=== PATIENT | male | born 1945 | race Caucasian/White ===

== ENCOUNTER → 2023-07-05 12:07 | Outpatient (CLI) | payer MEDICARE, OTHER, SELFPAY ==
--- NOTE | 2023-07-05 12:10 | DI.CT.S_ITS ---
PROCEDURE: CT CHEST HIGH RESOLUTION INDICATIONS: Shortness of breath TECHNIQUE: Noncontrast 1.0 and 5.0 mm thick contiguous axial sections from the pulmonary apex to the posterior costophrenic angles, with 7 mm thick coronal and sagittal MIP reformats. 1 mm thick dynamic expiratory images acquired through the upper, mid, and lower lungs. 1.0 mm thick axial sections acquired from the rere to the posterior costophrenic angles in the prone end-inspiration position. For radiation dose reduction, the following was used: automated exposure control, adjustment of mA and/or kV according to patient size. COMPARISON: None. FINDINGS: Image quality: Diagnostic. Lower Neck: No enlarged lymph nodes. Thyroid: No thyroid nodules which require sonographic follow up, per consensus guidelines. Axillae: No enlarged lymph nodes. Chest Wall: Left chest wall generator with cardiac leads. Bones: Unremarkable. Lungs and Pleura: No pneumothorax or pleural effusions. Very mild peripheral reticulation of the right lung base, with mild associated bronchiectasis. No significant air trapping. No ground-glass. Heart: Heart size is normal. No pericardial effusion. Thoracic Vessels: The aorta and pulmonary arteries demonstrate normal size. Mediastinum and Charlene: No enlarged lymph nodes. Esophagus: No wall thickening. Moderate hiatal hernia. Upper Abdomen: Visualized upper abdomen solid organs and bowel loops appear normal. IMPRESSION: Very mild peripheral reticulation of the right lung base, with mild associated bronchiectasis. Differential includes senescent fibrosis or very early interstitial lung disease versus scarring. Moderate hiatal hernia. Dictated by: Gamaliel Cooper M.D. on 07/05/2023 at 13:28 Approved by: Gamaliel Cooper M.D. on 07/05/2023 at 13:31
== END ==
LOC: CT 12:10
PROVIDERS: PCP Family Medicine; Referring Provider Internal Medicine; Visit Provider Internal Medicine
DX: J47.9 Bronchiectasis, uncomplicated (principal); K44.9 Diaphragmatic hernia without obstruction or gangrene; R06.00 Dyspnea, unspecified; R06.02 Shortness of breath
CPT/HCPCS: 71250

== ENCOUNTER → 2023-07-05 13:36 | Outpatient (CLI) | payer MEDICARE, OTHER, SELFPAY | PROVIDERS: PCP Family Medicine; Referring Provider Internal Medicine; Visit Provider Internal Medicine | DX: R06.02 Shortness of breath (principal); J98.8 Other specified respiratory disorders; Z87.891 Personal history of nicotine dependence; J47.9 Bronchiectasis, uncomplicated; K44.9 Diaphragmatic hernia without obstruction or gangrene; R06.00 Dyspnea, unspecified | CPT/HCPCS: 71250; 94060; 94726; 94729 ==

== ENCOUNTER → 2023-07-16 12:48 | Outpatient (CLI) | payer MEDICARE, OTHER, SELFPAY ==
[2023-07-16 13:31] LABS: Add Manual Diff / Slide Review NO; Basophils Absolute Auto 0 /uL (0-100); Basophils Percent Auto 0.5 % (0-2); Blood Urea Nitrogen 26 mg/dL (9-20); Calcium 10.3 mg/dL (8.4-10.2); Carbon Dioxide 28 mmol/L (22-32); Chloride 101 mmol/L (98-107); Eosinophils Absolute Auto 1400 /uL (0-450); Estimated Glomerular Filt Rate 53 mL/min (>60); Glucose 153 mg/dL (80-110); HEMOLYSIS < 15 (0-50); Hematocrit 41.4 % (41-53); Hemoglobin 14.1 g/dL (13.5-17.5); Lymphocytes Absolute Auto 2100 /uL (1100-4500); Lymphocytes Percent Auto 21.2 % (25-40); Mean Corpuscular HGB Conc 34.1 % (30-36); Mean Corpuscular Hemoglobin 31.7 PG (26-34); Mean Corpuscular Volume 93.2 fL (80-100); Monocytes Absolute Auto 700 /uL (0-900); Monocytes Percent Auto 6.6 % (3-14); Neutrophils Absolute Auto 5800 /uL (1500-7000); Neutrophils Percent Auto 57.7 % (50-75); Platelet Count 196 X10^3/uL (150-400); Potassium 3.8 mmol/L (3.4-5.1); Red Blood Cell Count 4.44 X10^6/uL (4.5-5.9); Red Cell Distribution Width 13.5 % (11.6-14.8); Sodium 138 mmol/L (137-145); White Blood Cell Count 10.1 X10^3/uL (4.5-11.0)
[2023-07-16 13:37] LABS: NT-proBNP (BNP-Adult 18+) 106 pg/mL (<450)
== END ==
PROVIDERS: PCP Family Medicine; Referring Provider Internal Medicine Cardiovascular Disease; Visit Provider Internal Medicine Cardiovascular Disease
DX: I50.32 Chronic diastolic (congestive) heart failure (principal)
CPT/HCPCS: 36415; 80048; 83880; 85025

== ENCOUNTER → 2023-10-25 13:03 | Outpatient (CLI) | payer MEDICARE, OTHER, SELFPAY ==
--- NOTE | 2023-10-25 13:04 | DI.ECHO.S_ITS ---
[facility] +---------+ [facility] : : [id number] : : [place] : : [id number] : : Phone: [phone] Echocardiogram Report + + :Name: PIPPA HENDRICKS Study Date: 10/25/2023 Height: 74 in : :[facility] ReadingLocation: Weight: 312 lb : : Gender: Male BSA: 2.6 m2 : :: 1945 Age: 78 yrs BP: 136/92 mmHg: :Reason For Study: DYSPNEA : :Ordering Physician: VIPUL, : :AMARJIT Performed By: Teo Soares : :Referring: AMARJIT VILLEDA : + + Interpretation Summary Technically difficult study. 1) Normal left ventricular size and systolic function (EF 55-60%). 2) Normal right ventricular size and function. 3) No significant valvular abnormalities. 4) No prior Echo available for comparison. Procedure: A two-dimensional transthoracic echocardiogram with color flow and Doppler was performed. A contrast injection of Definity was performed to improve assessment of LV function. The study quality was technically difficult. There is no prior echocardiogram noted for this patient. Left Ventricle: The left ventricle is normal in size. There is mild concentric left ventricular hypertrophy. The ejection fraction is estimated to be 55-60%. There are no obvious focal wall motion abnormalities noted but poor endocardial definition reduces the sensitivity for the detection of such. Right Ventricle: The right ventricle is not well visualized. There is a pacemaker lead in the right ventricle. The right ventricle grossly appears normal in size with probable normal systolic function. Atria: The left atrial size is normal. Right atrium not well visualized. The interatrial septum grossly appears intact with no obvious evidence for an atrial septal defect. Mitral Valve: The mitral valve is normal in structure and function. There is no mitral valve stenosis. There is mild mitral regurgitation. Aortic Valve: The aortic valve is grossly normal. There is no aortic valve stenosis. No aortic regurgitation is present. Tricuspid Valve: The tricuspid valve is not well visualized. The tricuspid valve is not well visualized, but is grossly normal. There is no tricuspid stenosis. No tricuspid regurgitation. Pulmonic Valve: The pulmonic valve is not well visualized. There is no pulmonic valvular stenosis. There is no pulmonic valvular regurgitation. Great Vessels: The aortic root is mildly dilated. The dimensions of the ascending aorta are normal. The inferior vena cava was not visualized. Pericardium/ Pleura There is no pericardial effusion. There is no pleural effusion. MMode/2D Measurements & Calculations LVIDd: 5.5 cm LVOT diam: 2.4 cm LVIDs: 4.5 cm Ao root diam: 4.0 cm FS: 17.5 % asc Aorta Diam: 3.6 cm IVSd: 1.2 cm Ao Arch Diam (Prox Trans): 3.3 cm LVPWd: 1.4 cm LV boyd. diameter/BSA (cm/m^2): 2.1 LV sys. diameter/BSA (cm/m^2): 1.7 LA A2 area: 19.8 cm2 LA A4 area: 19.7 cm2 LA length (vol): 6.0 cm LA vol: 54.9 ml LA vol index: 20.9 ml/m2 Doppler Measurements & Calculations Ao V2 max: 148.1 cm/sec LVOT Max Vipul: 91.7 cm/sec Ao V2 mean: 104.8 cm/sec LV V1 max P.4 mmHg Ao max P.8 mmHg LV V1 VTI: 18.8 cm Ao mean P.0 mmHg COREEN(I,D): 3.1 cm2 Ao V2 VTI: 27.1 cm COREEN(V,D): 2.8 cm2 sev ratio: 0.69 COREEN indexed to BSA (cm^2/m^2): 1.2 MV E max vipul: 64.5 cm/sec PA V2 max: 97.5 cm/sec MV A max vipul: 85.8 cm/sec PA V2 mean: 65.7 cm/sec MV E/A: 0.75 PA mean P.0 mmHg Med Peak E' Vipul: 4.9 cm/sec PA pr(Accel): 34.5 mmHg E/E' med: 13.1 Lat Peak E' Vipul: 6.7 cm/sec E/E' lat: 9.6 E/e' average: 11.4 MV dec time: 0.30 sec SV(LVOT): 84.7 ml Reading Physician:05:26 PM
== END ==
PROVIDERS: PCP Family Medicine; Referring Provider Internal Medicine Cardiovascular Disease; Visit Provider Internal Medicine Cardiovascular Disease
DX: I34.0 Nonrheumatic mitral (valve) insufficiency (principal); I77.810 Thoracic aortic ectasia; I50.32 Chronic diastolic (congestive) heart failure; R06.09 Other forms of dyspnea
CPT/HCPCS: 93306; C8929; Q9957

== ENCOUNTER → 2023-11-04 14:11 | Outpatient (CLI) | payer MEDICARE, OTHER, SELFPAY ==
[2023-11-04 15:16] LABS: Add Manual Diff / Slide Review NO; Basophils Absolute Auto 100 /uL (0-100); Basophils Percent Auto 0.9 % (0-2); Eosinophils Absolute Auto 300 /uL (0-450); Eosinophils Percent Auto 3.6 % (2-4); Hematocrit 42.1 % (41-53); Hemoglobin 14.6 g/dL (13.5-17.5); Lymphocytes Absolute Auto 1900 /uL (1100-4500); Lymphocytes Percent Auto 21.6 % (25-40); Mean Corpuscular HGB Conc 34.6 % (30-36); Mean Corpuscular Hemoglobin 32.6 PG (26-34); Mean Corpuscular Volume 94.3 fL (80-100); Monocytes Absolute Auto 700 /uL (0-900); Monocytes Percent Auto 8.2 % (3-14); Neutrophils Absolute Auto 5700 /uL (1500-7000); Neutrophils Percent Auto 65.7 % (50-75); Platelet Count 255 X10^3/uL (150-400); Red Blood Cell Count 4.46 X10^6/uL (4.5-5.9); Red Cell Distribution Width 13.6 % (11.6-14.8); White Blood Cell Count 8.7 X10^3/uL (4.5-11.0)
[2023-11-04 15:22] LABS: BUN Creatinine Ratio 15.1 (6-22); Blood Urea Nitrogen 22 mg/dL (9-20); Calcium 9.5 mg/dL (8.4-10.2); Carbon Dioxide 25 mmol/L (22-32); Chloride 103 mmol/L (98-107); Estimated Glomerular Filt Rate 49 mL/min (>60); Glucose 101 mg/dL (80-110); HEMOLYSIS < 15 (0-50); Potassium 4.2 mmol/L (3.4-5.1); Sodium 139 mmol/L (137-145)
[2023-11-04 15:33] LABS: NT-proBNP (BNP-Adult 18+) 95 pg/mL (<450)
== END ==
PROVIDERS: PCP Family Medicine; Referring Provider Internal Medicine Cardiovascular Disease; Visit Provider Internal Medicine Cardiovascular Disease
DX: I50.32 Chronic diastolic (congestive) heart failure (principal); I11.0 Hypertensive heart disease with heart failure
CPT/HCPCS: 36415; 80048; 83880; 85025

== ENCOUNTER → 2024-01-24 15:33 | Outpatient (CLI) | payer MEDICARE, OTHER, SELFPAY ==
[2024-01-24 18:03] LABS: Hemoglobin A1C% w Est Avg Glu 6.8 % (4.0-6.0)
== END ==
PROVIDERS: PCP Family Medicine; Referring Provider Student in an Organized Health Care Education/Training Program; Visit Provider Student in an Organized Health Care Education/Training Program
DX: E11.69 Type 2 diabetes mellitus with other specified complication (principal)
CPT/HCPCS: 36415; 83036

== ENCOUNTER → 2024-05-19 14:25 | Outpatient (CLI) | payer MEDICARE, OTHER, SELFPAY ==
[2024-05-19 15:30] LABS: Hematocrit 44.8 % (41-53); Hemoglobin 14.6 g/dL (13.5-17.5); Mean Corpuscular HGB Conc 32.7 % (30-36); Mean Corpuscular Hemoglobin 30.5 PG (26-34); Mean Corpuscular Volume 93.2 fL (80-100); Platelet Count 220 X10^3/uL (150-400); Red Blood Cell Count 4.81 X10^6/uL (4.5-5.9); White Blood Cell Count 9.1 X10^3/uL (4.5-11.0)
[2024-05-19 15:52] LABS: BUN Creatinine Ratio 15.1 (6-22); Blood Urea Nitrogen 23 mg/dL (9-20); Calcium 9.6 mg/dL (8.4-10.2); Carbon Dioxide 25 mmol/L (22-32); Chloride 104 mmol/L (98-107); Cholesterol 145 mg/dL (140-199); Estimated Glomerular Filt Rate 46 mL/min (>60); Glucose 154 mg/dL (80-110); HDL Cholesterol 44 mg/dL (40-60); HEMOLYSIS < 15 (0-50); LDL Cholesterol Calculated 65 mg/dL (<100); Potassium 4.4 mmol/L (3.4-5.1); Sodium 139 mmol/L (137-145); Triglycerides 178 mg/dL (35-150)
[2024-05-19 16:01] LABS: NT-proBNP (BNP-Adult 18+) 696 pg/mL (<450)
== END ==
PROVIDERS: PCP Family Medicine; Referring Provider Internal Medicine Cardiovascular Disease; Visit Provider Internal Medicine Cardiovascular Disease
DX: R06.09 Other forms of dyspnea (principal); I10 Essential (primary) hypertension; E78.5 Hyperlipidemia, unspecified
CPT/HCPCS: 36415; 80048; 80061; 83880; 85027

== ENCOUNTER → 2024-06-19 14:10 | Outpatient (CLI) | payer MEDICARE, OTHER, SELFPAY ==
[2024-06-19 15:12] LABS: Creatinine Urine Random 64.15 mg/dL
[2024-06-19 15:13] LABS: Microalbumin Urine Random 2.3 mg/dL (0-1.6)
[2024-06-19 15:40] LABS: Albumin 4.4 g/dL (3.5-5.0); BUN Creatinine Ratio 16.1 (6-22); Blood Urea Nitrogen 22 mg/dL (9-20); Calcium 9.7 mg/dL (8.4-10.2); Carbon Dioxide 26 mmol/L (22-32); Chloride 103 mmol/L (98-107); Cholesterol 166 mg/dL (140-199); Estimated Glomerular Filt Rate 52 mL/min (>60); Glucose 127 mg/dL (80-110); HDL Cholesterol 46 mg/dL (40-60); HEMOLYSIS < 15 (0-50); LDL Cholesterol Calculated 89 mg/dL (<100); Phosphorous 2.6 mg/dL (2.3-3.7); Potassium 4.2 mmol/L (3.4-5.1); Sodium 139 mmol/L (137-145); Triglycerides 153 mg/dL (35-150)
== END ==
PROVIDERS: PCP Family Medicine; Referring Provider Student in an Organized Health Care Education/Training Program; Visit Provider Student in an Organized Health Care Education/Training Program
DX: E11.69 Type 2 diabetes mellitus with other specified complication (principal)
CPT/HCPCS: 36415; 80061; 80069; 82043; 82570